=== PATIENT | female | born 1960 | race Caucasian/White ===

== ENCOUNTER 2019-03-19 07:59 | Emergency (ER) | payer OTHER ==
[2019-03-19 08:09] VITALS: BMI 36.6
--- NOTE | 2019-03-19 09:30 | PDOC ---
History of Present Illness - General Chief Complaint: Injury Stated Complaint: FALL Time Seen by Provider: 03/19/19 08:21 History Source: Patient Exam Limitations: No Limitations - History of Present Illness Initial Comments: 03/19/19 09:25 58-year-old female with history of carpal tunnel, gout, migraines, gallstones, renal aneurysm, [id number] presents complaining of mild headache, upper back pain, bilateral hand and wrist pain that is post mechanical fall down 13 steps at home this morning. Patient reports she walked out of the bathroom, lights were off and accidentally stepped down the staircase causing her to fall forward down 13 carpeted steps. Denies any preceding symptoms such as chest pain, shortness of breath, dizziness, headache. Denies LOC, vomiting, nausea, chest pain, abdominal pain. Tetanus received 4 years ago. ROS: GENERAL/CONSTITUTIONAL: No fever, chills, weakness, dizziness HEAD, EYES, EARS, NOSE AND THROAT: No changes in vision, No ear pain or discharge, No sore throat CARDIOVASCULAR: No chest pain RESPIRATORY: No shortness of breath or cough GASTROINTESTINAL: No pain, nausea, vomiting, diarrhea or constipation GENITOURINARY: No dysuria MUSCULOSKELETAL: Mild neck and upper back pain SKIN: No rash NEUROLOGIC: Mild headache, denies vertigo, loss of consciousness, or loss of sensation PE: GENERAL: well-appearing, NAD HEAD: Approximately 2.5 cm deep laceration above left eyebrow, no active bleeding EYES: Normal bilateral ear canal, normal bilateral TM's, pupils equal, round and reactive to light, sclera anicteric, conjunctiva clear ENT: pharynx: no erythema, no exudate, uvula midline NECK: supple CHEST: nontender RESP: clear, no w/r/r CARDIO: rrr, no m/g/r ABD: +BS, soft, nontender, non distended BACK: no midline spinal ttp, no CVAT EXTREMITIES: Right wrist swelling, decreased range of motion, left wrist swelling, positive bilateral radial pulses NEUROLOGICAL: Normal speech, normal gait SKIN: Warm, Dry 03/19/19 09:32 03/19/19 12:45 Is this a multiple visit Asthma Patient?: No Past History - Past Medical History Allergies/Adverse Reactions: Allergies Allergy/AdvReac Type Severity Reaction Status Date / Time No Known Allergies Allergy Verified 10/07/12 14:37 Home Medications: Ambulatory Orders Ibuprofen [Advil -] 200 mg PO PRN 10/07/12 Naproxen Sodium [Aleve] 220 mg PO PRN 10/07/12 Naratriptan HCl 2.5 mg PO PRN 10/07/12 Hydrocodone/Acetaminophen [Hydrocodon-Acetaminophn 10-325] 1 each PO TID PRN 3 Days #8 tablet MDD 3 tabs 03/19/19 Hydrocodone/Acetaminophen [Hydrocodone-Acetamin 5-325 mg] 1 each PO QID PRN 3 Days #10 tablet MDD 4 03/19/19 Anemia: No Asthma: No Cancer: No Cardiac Disorders: No CVA: No COPD: No CHF: No Dementia: No Diabetes: No GI Disorders: No Disorders: No HTN: No Hypercholesterolemia: No Liver Disease: No Seizures: No Thyroid Disease: No - Surgical History Abdominal Surgery: No Appendectomy: No Cardiac Surgery: No Cholecystectomy: No Lung Surgery: No Neurologic Surgery: No Orthopedic Surgery: Yes (LEFT KNEE SURGERY) - Psycho Social/Smoking Cessation Hx Smoking History: Never smoked Have you smoked in the past 12 months: No Information on smoking cessation initiated: No Hx Alcohol Use: No Drug/Substance Use Hx: No Substance Use Type: None Hx Substance Use Treatment: No *Physical Exam - Vital Signs Last Vital Signs Temp Pulse Resp BP Pulse Ox 98.3 F 77 16 151/76 98 03/19/19 08:03 03/19/19 08:03 03/19/19 08:03 03/19/19 08:03 03/19/19 08:03 Procedures - Laceration/Wound Repair Left Face Wound Length: to 2.5 cm Wound Explored: clean Wound's Depth, Shape: superficial Irrigated w/ Saline: Yes Betadine Prep: Yes Anesthesia: 1% Lidocaine Amount of Anesthetic (ccs): 2 Wound Repaired With: Sutures Suture Size/Type: 5:0, nylon Number of Sutures: 5 Layer Closure: Yes Deep Layer Suture Size/Type: 5:0, chromic Number of Deep Layer Sutures: 1 Sterile Dressing Applied: Yes Splint Applied: No Sling Applied: No ED Treatment Course - RADIOLOGY Radiology Studies Ordered: Category Date Time Status FACIAL BONES CT W/O CONTRAST [CT] Stat CT Scan 03/19/19 08:45 Taken CHEST PA & LAT [RAD] Stat Radiology 03/19/19 08:44 Ordered PELVIS [RAD] Stat Radiology 03/19/19 08:46 Ordered WRIST W/HAND-LEFT* [RAD] Stat Radiology 03/19/19 08:46 Ordered WRIST W/HAND-RIGHT* [RAD] Stat Radiology 03/19/19 08:46 Ordered Medical Decision Making - Medical Decision Making 03/19/19 09:30 58-year-old female history of migraines, carpal tunnel, gout presents complaining of mild headache, bilateral wrist and hand pain, upper back pain status post mechanical fall down 13 carpeted steps at approximately 7 AM today. Deep laceration above left eyebrow Head CT, cervical spine CT, facial bone CT Chest x-ray, pelvis x-ray, right lateral wrist and hand x-rays Declines analgesia at this time Will reassess 03/19/19 12:31 Laceration above left eyebrow repaired No acute findings on head CT, cervical CT, facial bone CT, chest x-ray, pelvis x-ray IM Toradol ordered Acute fractures to bilateral wrist Consulted Ortho Dr. Cho evaluated patient at 11:40 AM 03/19/19 12:45 Patient placed in bilateral wrist splints Prescription for hydrocodone/acetaminophen sent to pharmacy for breakthrough pain Stable for discharge Follow-up with Ortho Sunday, March 24, 2019 Have sutures removed in 5 days Keep area clean and dry, if fever, chills, swelling, drainage from wound or any worsening symptoms return to ED Discharge - Discharge Information Problems reviewed: Yes Clinical Impression/Diagnosis: Wrist fracture, bilateral Qualifiers: Encounter type: initial encounter Fracture type: closed Qualified Code(s): S62.101A - Fracture of unspecified carpal bone, right wrist, initial encounter for closed fracture; S62.102A - Fracture of unspecified carpal bone, left wrist, initial encounter for closed fracture Eyebrow laceration Qualifiers: Encounter type: initial encounter Laterality: left Qualified Code(s): S01.112A - Laceration without foreign body of left eyelid and periocular area, initial encounter Condition: Stable Disposition: HOME - Admission No - Follow up/Referral Referrals: Jamar Mak MD [Primary Care Provider] - - Patient Discharge Instructions Additional Instructions: Take ibuprofen 600 mg every 6 hours as needed for pain Take hydrocodone/acetaminophen every 6 hours as needed for breakthrough pain Keep wrists elevated, keep your splint dry Follow-up with orthopedic surgeon on Sunday, March 24, 2019 Have sutures removed in 5 days Apply bacitracin to wound above left eyebrow twice a day Return to ER if fever, chills, worsening pain, swelling, numbness, tingling or any concerning symptoms - Post Discharge Activity
[2019-03-19] MEDS ORDERED: LIDOCAINE 1%/EPI 1:100000 (20 ML MULTI DOSE VIAL) ONE (10:33)
--- NOTE | 2019-03-19 11:16 | PDOC ---
*Physical Exam - Vital Signs Last Vital Signs Temp Pulse Resp BP Pulse Ox 98.3 F 77 16 151/76 98 03/19/19 08:03 03/19/19 08:03 03/19/19 08:03 03/19/19 08:03 03/19/19 08:03 - Physical Exam 03/19/19 11:13 Vital signs stable Alert and ambulatory Left forehead laceration over left eyebrow, no periorbital tenderness or step- off. No midline spine tenderness. No clavicular or rib tenderness, heart is regular, lungs are clear Abdomen benign No lower extremity injury. Bilateral distal radius/ulnar tenderness with soft tissue swelling, limited wrist range of motion, skin intact, neurovascular intact distally in the hand Neurologically intact ED Treatment Course - RADIOLOGY Radiology Studies Ordered: Category Date Time Status CERVICAL SPINE CT W/O CONTR [CT] Stat CT Scan 03/19/19 08:[address] WITHOUT CONTRAST [CT] Stat CT Scan 03/19/19 08:21 Completed Medical Decision Making - Medical Decision Making 03/19/19 11:13 Patient seen and evaluated with the nurse practitioner. I agree with the overall evaluation, assessment, and management with the following summary of visit: 58-year-old female with accidental fall downstairs in the dark, bilateral wrist injury and head injury. Neurologically intact with normal vital signs, neurovascularly intact from a trauma perspective. CT head/face/C-spine Chest/pelvis x-ray Bilateral wrist/hand x-ray Declined pain medication Tetanus is up-to-date as of 4 years ago Discharge - Discharge Information Problems reviewed: Yes Clinical Impression/Diagnosis: Wrist fracture, bilateral Qualifiers: Encounter type: initial encounter Fracture type: closed Qualified Code(s): S62.101A - Fracture of unspecified carpal bone, right wrist, initial encounter for closed fracture Eyebrow laceration Qualifiers: Encounter type: initial encounter Laterality: left Qualified Code(s): S01.112A - Laceration without foreign body of left eyelid and periocular area, initial encounter Condition: Stable Disposition: HOME - Additional Discharge Information Prescriptions: Hydrocodone/Acetaminophen [Hydrocodone-Acetamin 5-325 mg] 1 each PO QID PRN 3 Days #10 tablet MDD 4 PRN Reason: Pain Level 7 - 10 - Follow up/Referral Referrals: Jamar Mak MD [Primary Care Provider] - - Patient Discharge Instructions Additional Instructions: Take ibuprofen 600 mg every 6 hours as needed for pain Take hydrocodone/acetaminophen every 6 hours as needed for breakthrough pain Keep wrists elevated, keep your splint dry Follow-up with orthopedic surgeon on Sunday, March 24, 2019 Have sutures removed in 5 days Apply bacitracin to wound above left eyebrow twice a day Return to ER if fever, chills, worsening pain, swelling, numbness, tingling or any concerning symptoms - Post Discharge Activity
[2019-03-19] MEDS ORDERED: KETOROLAC TROMETHAMINE 30 MG/1 ML VIAL IM ONE (11:40)
[2019-03-19] MEDS ORDERED: KETOROLAC TROMETHAMINE 30 MG/1 ML VIAL ONE (12:46)
[2019-03-19 13:47] VITALS: BP 133/67; PULSE 73; TEMP 98.6
--- NOTE | 2019-03-24 21:35 | CON.ORTH ---
Consult Consult Specialty:: Orthopedics - History of Present Illness History of Present Illness: 58-year-old female presents after FOOSH on both upper extremities. Patient was found to have bilateral distal radius fractures. Orthopedic consultation was called. Patient does give a history of previous carpal tunnel on both sides. Patient notes pain in both wrists but nowhere else. No previous wrist injury or fracture. - History Source History Provided By: Patient, Family Member, Medical Record Limitations to Obtaining History: No Limitations - Alcohol/Substance Use Hx Alcohol Use: No - Smoking History Smoking history: Never smoked Have you smoked in the past 12 months: No Home Medications - Allergies Allergies/Adverse Reactions: Allergies Allergy/AdvReac Type Severity Reaction Status Date / Time latex Allergy Intermediate Rash Verified 03/24/19 14:17 - Home Medications Home Medications: Ambulatory Orders Ibuprofen [Advil -] 200 mg PO PRN 10/07/12 Naproxen Sodium [Aleve] 220 mg PO PRN PRN 10/07/12 Hydrocodone/Acetaminophen [Hydrocodone-Acetamin 5-325 mg] 1 each PO QID PRN 3 Days #10 tablet MDD 4 03/19/19 Allopurinol 300 mg PO DAILY 03/24/19 Review of Systems - Review of Systems Constitutional: reports: No Symptoms Eyes: reports: No Symptoms HENT: reports: No Symptoms Cardiovascular: reports: No Symptoms Respiratory: reports: No Symptoms Physical Exam for Ortho Vital Signs: Vital Signs Temperature 98.6 F 03/19/19 13:46 Pulse Rate 73 03/19/19 13:46 Respiratory Rate 16 03/19/19 13:46 Blood Pressure 133/67 03/19/19 13:46 O2 Sat by Pulse Oximetry (%) 98 03/19/19 13:46 Constitutional: Yes: Well Nourished, No Distress, Calm - Upper Extremity Wrist: Yes: Left, Right, Deformity, Limited ROM, Swelling (moderate on both sides), Tenderness, Other (both sides with sensation intact to LT, 2+ rad pulses and intact thumbs up, ok sign and finger cross). No: Abrasion, Bone Exposed Imaging - Results X-ray: Report Reviewed, Image Reviewed (Films show bilateral comminuted, shortened, dorsally angulated distal radius fractures) Problem List - Problems (1) Wrist fracture, bilateral Assessment/Plan: I reviewed today's findings with the patient and her . She suffered significant fractures to both wrists. I am recommending that operative care is her best option. Given the swelling present, she is best served by immobilization followed by ORIF. She was placed into bilateral distal radius splints in the emergency department today. These were done under gentle traction. She should elevate. Splint care was reviewed. She can use anti- inflammatories as well as pain medication as needed. She will follow-up with Dr. Tran next week for surgical planning. Problems reviewed: Yes Code(s): S62.101A - FRACTURE OF UNSP CARPAL BONE, RIGHT WRIST, INIT FOR CLOS FX ; S62.102A - FRACTURE OF UNSP CARPAL BONE, LEFT WRIST, INIT FOR CLOS FX Qualifiers: Encounter type: initial encounter Fracture type: closed Qualified Code(s) : S62.101A - Fracture of unspecified carpal bone, right wrist, initial encounter for closed fracture; S62.102A - Fracture of unspecified carpal bone, left wrist, initial encounter for closed fracture
== END 2019-03-19 13:47 | disposition home or self-care (01) ==
LOC: JER 07:59
PROC: 0HQ1XZZ Repair Face Skin, External Approach (ICD-10-PCS; principal; 2019-03-19)
PROC: 3E0233Z Introduction of Anti-inflammatory into Muscle, Percutaneous Approach (ICD-10-PCS; 2019-03-19)
DX: S01.112A Laceration without foreign body of left eyelid and periocular area, initial encounter (principal); S62.101A Fracture of unspecified carpal bone, right wrist, initial encounter for closed fracture; W18.39XA Other fall on same level, initial encounter; Y93.89 Activity, other specified; Y92.89 Other specified places as the place of occurrence of the external cause; M10.9 Gout, unspecified; G56.00 Carpal tunnel syndrome, unspecified upper limb; G43.909 Migraine, unspecified, not intractable, without status migrainosus
CPT/HCPCS: 70450-TC; 70486-TC; 71046-TC-FY; 72125-TC; 72170-TC-FY; 73110-TC-LT-FY; 73110-TC-RT-FY; 73130-TC-LT-FY; 73130-TC-RT-FY; 99283-25

== ENCOUNTER 2019-03-26 13:47 | Day surgery (SDC) | payer OTHER ==
[2019-03-24 14:28] VITALS: BMI 36.0
[2019-03-26] MEDS ORDERED: ROCURONIUM BROMIDE 50 MG/5 ML SYRINGE ONE ×2 (13:54→16:14)
[2019-03-26] MEDS ORDERED: fentaNYL CITRATE 250 MCG/5 ML VIAL ONE ×2 (13:54→16:14)
[2019-03-26] MEDS ORDERED: PROPOFOL 20 ML ONE ×2 (13:54→16:14)
[2019-03-26] MEDS ORDERED: LIDOCAINE HCL/PF 2% SDV 5ML VIAL ONE (13:55)
[2019-03-26] MEDS ORDERED: MIDAZOLAM HCL 2 MG/2 ML SINGLE DOSE VIAL ONE ×2 (13:55→16:14)
[2019-03-26] MEDS ORDERED: BUPIVACAINE HCL/PF 0.5% (5MG/ML) 10 ML VIAL ONE (14:59)
[2019-03-26] MEDS ORDERED: BUPIVACAINE HCL/PF 0.5% (5MG/ML) 10 ML VIAL IJ ONE ×3 (15:52→18:35)
[2019-03-26] MEDS ORDERED: DEXAMETHASONE SOD PHOSPHATE 4 MG/1 ML VIAL ONE (16:45)
[2019-03-26] MEDS ORDERED: ONDANSETRON 4 MG/2 ML VIAL ONE ×2 (16:45→18:18)
[2019-03-26] MEDS ORDERED: GLYCOPYRROLATE 0.2 MG/1 ML VIAL ONE (18:11)
[2019-03-26] MEDS ORDERED: NEOSTIGMINE METHYLSULFATE 0.5 MG/ML - 10 ML MDV ONE (18:11)
[2019-03-26] MEDS ORDERED: GUM MASTIC/STORAX/MSAL/ALCOHOL 1 DRP DROPSBTL MC ONE (18:31)
[2019-03-26] MEDS ORDERED: oxyCODONE HCL 5 MG TABLET PO PRN (19:05)
[2019-03-26] MEDS: ONDANSETRON 4 MG/2 ML VIAL IVPUSH PRN (19:14)
[2019-03-26] MEDS ORDERED: oxyCODONE HCL 5 MG TABLET ONE (20:17)
[2019-03-27] MEDS: ONDANSETRON 4 MG/2 ML VIAL IVPUSH PRN (00:46)
[2019-03-27] MEDS: oxyCODONE HCL 5 MG TABLET PO PRN ×3 (01:30→12:11)
--- NOTE | 2019-03-27 09:16 | OP ---
DATE OF OPERATION: 03/26/2019 PREOPERATIVE DIAGNOSES: 1. Left distal radius fracture. 2. Left carpal tunnel syndrome. 3. Right distal radius fracture. 4. Right carpal tunnel syndrome. POSTOPERATIVE DIAGNOSES: 1. Left distal radius fracture. 2. Left carpal tunnel syndrome. 3. Right distal radius fracture. 4. Right carpal tunnel syndrome. OPERATIVE PROCEDURES: 1. Open reduction and internal fixation of left comminuted intra-articular displaced distal radius fracture, with internal fixation of 3 or more fragments. 2. Open reduction and internal fixation of right comminuted intra-articular displaced distal radius fracture, with internal fixation of 3 or more fragments. 3. Left carpal tunnel release. 4. Right carpal tunnel release. SURGEON: Jose Tran MD PLASTICS ENGINEERING TEACHER: JANETTE Means ANESTHESIA: General. COMPLICATIONS: None. ESTIMATED BLOOD LOSS: Minimal. INDICATIONS FOR PROCEDURE: The patient is a 58-year-old female with the above findings, indicated for operative treatment. The risks, benefits and alternatives were discussed with the patient at length and proper informed consent was obtained. DESCRIPTION OF PROCEDURE: After proper identification of the patient and correct operative site, the patient was brought to the operating room and placed supine on the table, with all bony prominences well-padded. Sedation was given by the anesthesiologist. General anesthesia and intravenous antibiotics were given. A time-out procedure was performed. The left upper extremity and right upper extremity were both prepped and draped in the usual sterile fashion. The left upper extremity was addressed first. Esmarch bandage was used to exsanguinate the left upper extremity, and the tourniquet was inflated to 250 mmHg. A longitudinal incision was made over the volar aspect of the distal radius in line with the flexor carpi radialis tendon. The incision was taken sharply through the skin, with blunt and sharp dissection through the subcutaneous tissue. The flexor carpi radialis tendon along with the contents of the carpal canal were bluntly and gently retracted in an ulnar-vivas direction for the remainder of the procedure. The pronator quadratus was found to be intact and was divided longitudinally and elevated off of the distal radius. A highly comminuted intra-articular fracture was found. A brachioradialis tenotomy was necessary to mobilize the radial styloid fragment. The shaft of the fracture was pronated into the wound and the intrafocal area of the fracture was visualized. Fracture fragments were reduced with an elevator up to the appropriate position. A standard reduction maneuver was performed, reducing the distal fragments back to the shaft and an Arthrex distal radius plate was placed on the volar aspect and secured proximally. The distal fragments were then reduced to the plate further and held tentatively with K-wires. Radiographs showed proper reduction of fracture. K-wires then were placed distally with locking screws, obtaining a secure stable fixation with satisfactory reduction confirmed radiographically in multiple planes. The wrist was taken through a range of motion. Full range of motion was achieved, with no instability of the fragments. The wound was irrigated and repaired in layers using 4-0 Vicryl and 4-0 Monocryl suture. A 2nd incision was made on the volar proximal aspect of the palm. The incision was taken sharply through the skin, with blunt and sharp dissection through the subcutaneous tissues. The palmar fascia was divided longitudinally. The transcarpal ligament was divided longitudinally. The distal 4 cm of the antebrachial fascia was also divided under direct visualization. This incision was irrigated and repaired with 5-0 fast-absorbing plain gut suture. Sterile dressings were applied to the wrist, as well as a wrist splint. The tourniquet was released. Esmarch bandage was then used to exsanguinate the right upper extremity, and the tourniquet was inflated to 250 mmHg. A longitudinal incision was made over the volar aspect of the flexor carpi radialis tendon. The incision was taken sharply through the skin, with blunt and sharp dissection through the subcutaneous tissue. The flexor carpi radialis tendon was retracted, along with the contents of the carpal canal, bluntly and gently in an ulnar-vivas for the remainder of the procedure. The pronator quadratus was found to be ruptured and was further divided and elevated off of the distal radius. A severely comminuted fracture was noted on this side. A brachioradialis tenotomy was necessary to mobilize radial styloid fragments. The shaft was pronated into the wound and the intrafocal reduction was performed. A reduction maneuver was then performed and held with an Arthrex distal radius locking plate, with distal locking screws and proximal non-locking screws. This provided a secure, stable, satisfactory reduction and fixation of the fracture, confirmed radiographically in multiple planes. The wound was irrigated and repaired in layers with 4-0 Vicryl and 4-0 Monocryl suture. A 2nd incision was made on this hand over the proximal aspect of the palm. The incision was taken sharply through the skin, with blunt and sharp dissection through the subcutaneous tissues. The palmar fascia was divided longitudinally. The transcarpal ligament was divided longitudinally, along with the distal 4 cm of the antebrachial fascia, under direct visualization with loupe magnification. This provided complete release of the median nerve at the wrist. The wound was irrigated and repaired with 5-0 fast-absorbing plain gut suture. Sterile dressings and a splint were placed. The patient was reversed from anesthesia and brought to the recovery room in stable condition. She tolerated the procedure well. Of note, the distal radioulnar joint and scapholunate levels were stressed during the procedure and found to be stable. Nomi Salazar, the assistant therapy aide, was integral throughout this procedure. The procedure could not have been performed without a skilled operative assistant therapy aide. Gail [id number]
[2019-03-27 10:49] VITALS: BP 140/64; PULSE 80; TEMP 99.7
== END 2019-03-27 12:13 | disposition home or self-care (01) ==
LOC: FASU 13:47 → FASUSAT 13:47 → FM/S 21:18 → FASUSAT 03-27 12:13
PROVIDERS: ATTEND Orthopaedic Surgery Hand Surgery
PROC: 0PSH04Z Reposition Right Radius with Internal Fixation Device, Open Approach (ICD-10-PCS; 2019-03-26)
PROC: 01N50ZZ Release Median Nerve, Open Approach (ICD-10-PCS; 2019-03-26)
PROC: 01N50ZZ Release Median Nerve, Open Approach (ICD-10-PCS; 2019-03-26)
PROC: 0PSJ04Z Reposition Left Radius with Internal Fixation Device, Open Approach (ICD-10-PCS; principal; 2019-03-26 15:30)
DX: S52.531A Colles' fracture of right radius, initial encounter for closed fracture (principal); S52.532A Colles' fracture of left radius, initial encounter for closed fracture; X58.XXXA Exposure to other specified factors, initial encounter; Y93.9 Activity, unspecified; Y92.9 Unspecified place or not applicable; Y99.0 Civilian activity done for income or pay; G56.03 Carpal tunnel syndrome, bilateral upper limbs
CPT/HCPCS: 25609; 64721; C1713; 73110-TC-LT-FY; 73110-TC-RT-FY; 73130-TC-LT-FY; 73130-TC-RT-FY; 94760

== ENCOUNTER → 2020-11-02 | Day surgery (SDC) | payer OTHER | END | disposition home or self-care (01) | LOC: FMAMMOTONE 09:53 | PROVIDERS: ATTEND Surgery | PROC: 0HBU3ZX Excision of Left Breast, Percutaneous Approach, Diagnostic (ICD-10-PCS; principal; 2020-11-02) | DX: N60.32 Fibrosclerosis of left breast (principal); N60.82 Other benign mammary dysplasias of left breast; N64.89 Other specified disorders of breast; R92.8 Other abnormal and inconclusive findings on diagnostic imaging of breast | CPT/HCPCS: 19081; 76098-TC-FY; 87899; A4648 ==

== ENCOUNTER → 2020-12-01 | Day surgery (SDC) | payer OTHER | END | disposition home or self-care (01) | LOC: FMAMMOTONE 09:46 | PROVIDERS: ATTEND Surgery | PROC: 0HBT3ZX Excision of Right Breast, Percutaneous Approach, Diagnostic (ICD-10-PCS; principal; 2020-12-01) | DX: Z53.8 Procedure and treatment not carried out for other reasons (principal); R92.0 Mammographic microcalcification found on diagnostic imaging of breast | CPT/HCPCS: 19081 ==

== ENCOUNTER 2021-01-23 05:23 | Day surgery (SDC) | payer OTHER ==
[2021-01-20 09:27] VITALS: BMI 36.9
[2021-01-23 08:32] LABS: EPI CELLS 12 /uL (0-25.1); HYALINE CASTS 0 /uL (0-3.1); URINE APPEARANCE CLEAR; URINE BACTERIA 113 /uL (0-1359); URINE BILIRUBIN NEGATIVE (NEGATIVE); URINE COLOR YELLOW; URINE GLUCOSE (UA) TRACE (NEGATIVE); URINE KETONE NEGATIVE (NEGATIVE); URINE LEUK ESTERASE TRACE (NEGATIVE); URINE NITRITE NEGATIVE (NEGATIVE); URINE PROTEIN NEGATIVE (NEGATIVE); URINE RBC 8 /uL (0-23.9); URINE UROBILINOGEN 0.2 mg/dL (0.2-1.0); URINE WBC 33 /uL (0-25.8)
[2021-01-23] MEDS ORDERED: LIDOCAINE HCL 1%, 10 MG/ML (20ML VIAL) ONE (09:47)
[2021-01-23] MEDS ORDERED: PROPOFOL 20 ML ONE ×2 (10:30)
[2021-01-23] MEDS ORDERED: MIDAZOLAM HCL 2 MG/2 ML SINGLE DOSE VIAL ONE (10:31)
[2021-01-23] MEDS ORDERED: SUCCINYLCHOLINE CHLORIDE 200 MG/10 ML SYRINGE ONE (10:31)
[2021-01-23] MEDS ORDERED: ceFAZolin SODIUM 1 GM VIAL ONE (10:56)
[2021-01-23] MEDS ORDERED: DEXAMETHASONE SOD PHOSPHATE 4 MG/1 ML VIAL ONE (11:04)
[2021-01-23] MEDS ORDERED: ONDANSETRON 4 MG/2 ML VIAL ONE (11:04)
[2021-01-23] MEDS ORDERED: LIDOCAINE HCL 1%, 10 MG/ML (20ML VIAL) PNB ONE (11:09)
[2021-01-23] MEDS ORDERED: LACTATED RINGERS SOLUTION 1,000 ML IV SCH (11:45)
[2021-01-23 14:03] VITALS: BP 130/66; PULSE 69; TEMP 97.1
== END 2021-01-23 13:37 | disposition home or self-care (01) ==
LOC: JASU-SURG 05:23
PROVIDERS: ATTEND Surgery
PROC: 0HBU0ZZ Excision of Left Breast, Open Approach (ICD-10-PCS; principal; 2021-01-23 11:00)
DX: N60.92 Unspecified benign mammary dysplasia of left breast (principal); N60.31 Fibrosclerosis of right breast
CPT/HCPCS: 19281; 76098-TC-FY; 81003; 88307-TC; 94760